=== PATIENT | female | born 1990 | race American Indian/Alaskan Native ===

== ENCOUNTER 2018-08-06 19:14 | Emergency (ER) | payer OTHER ==
[2018-08-06 19:32] VITALS: RESP 20
--- NOTE | 2018-08-06 20:47 | C.PDOC ---
History Of Present Illness 27 y/o female with hx of ? miscarriage (lmp in Mar 2018, no menses from then until event in May, reports she saw a fetus in toilet and had heavy vaginal bleeding, with no obstetrical care before or after) and no menstruation since; pt comes to ED with intermittent left lower quadrant pain since yesterday. c/o some white vaginal discharge. denies urinary symptoms. Time Seen by Provider: 08/06/18 20:34 Chief Complaint (Nursing): Abdominal Pain Past Medical History Vital Signs: Last Vital Signs Temp 98.6 F 08/06/18 19:30 Pulse 86 08/06/18 19:30 Resp 20 08/06/18 19:30 BP 143/93 H 08/06/18 19:30 Pulse Ox 100 08/06/18 19:30 - [facility] Procedures ASPIRATION SKIN & SUBQ (10/07/14) Family History: States: Unknown Family Hx - Social History Hx Tobacco Use: No Hx Alcohol Use: Yes Hx Substance Use: No - Immunization History Hx Tetanus Toxoid Vaccination: No Hx Influenza Vaccination: No Hx Pneumococcal Vaccination: No ED Course And Treatment O2 Sat by Pulse Oximetry: 100 Disposition Counseled Patient/Family Regarding: Studies Performed, Diagnosis, Need For Followup - Disposition Referrals: [facility] [Outside] [facility] [Outside] [facility] [Outside] Disposition: HOME/ ROUTINE Disposition Time: 21:57 Condition: GOOD Additional Instructions: Please follow up in clinic (ask for appointment with women's health) or call [facility] for assistance with making appointment. Stay well hydrated. Return to ER for any worse symptoms. Forms: [employer] (Latvian), General Discharge Instructions - Clinical Impression Clinical Impression: Encounter for medical assessment
[2018-08-06 21:27] LABS: SQUAMOUS EPITHIAL 1 /hpf (0-5); URINE BILIRUBIN NEGATIVE (NEGATIVE); URINE BLOOD NEGATIVE (NEGATIVE); URINE CLARITY Clear (Clear); URINE COLOR Yellow (YELLOW); URINE GLUCOSE (UA) NORMAL (Normal); URINE LEUKOCYTE ESTERASE NEG Leu/uL (Negative); URINE PROTEIN NEGATIVE (NEGATIVE); URINE UROBILINOGEN NORMAL mg/dL (0.2-1.0)
[2018-08-06 22:00] VITALS: BP 148/92; PULSE 69; TEMP 98.2
[2018-08-08 19:24] VITALS: O2SAT 100
== END 2018-08-06 22:04 | disposition home or self-care (01) ==
LOC: C.ER 19:14
DX: Z00.00 Encounter for general adult medical examination without abnormal findings (principal)